=== PATIENT | female | born 1975 | race Caucasian/White ===

== ENCOUNTER 2021-10-06 11:26 | Outpatient (REF) | payer MEDICARE, SELFPAY ==
--- NOTE | ~2021-10-06 | CT_ITS ---
EXAMINATION: CT ABDOMEN WITHOUT AND WITH CONTRAST CLINICAL INFORMATION: Liver lesions. COMPARISON: There are no previous studies available. When previous studies become available an addendum can be generated. TECHNIQUE: Contiguous axial thin section helical images of the abdomen were performed before and after the administration of 85 mL of Omnipaque 350 intravenous contrast. The data set was reformatted in the coronal and sagittal planes and reviewed on an independent workstation. This CT examination was performed using dose optimization techniques as appropriate, variously including the following: *Automated exposure control *Adjustment of mA and/or kV according to patient size (this includes techniques or standardized protocols for targeted exams where dose is matched to indication/reason for exam; i.e. extremities or head) *Use of iterative reconstruction technique DLP: 1055 mGy-cm FINDINGS: LUNG BASES: There is a 0.4 cm nodule in the extreme posterolateral costophrenic sulcus on the left (series 9, image 18). LIVER, GALLBLADDER, AND BILIARY TREE: The right lobe of the liver measures 15.1 cm which is within normal limits. The liver contour is smooth. There is no convincing suspicious focal liver lesion. Direct comparison with previous studies is necessary. An addendum will be generated when previous studies become available. Liver is no opaque gallstone. There is no biliary dilation. PANCREAS: No abnormality demonstrated SPLEEN: Within normal limits ADRENAL GLANDS AND KIDNEYS: The adrenal glands are within normal limits. There is a cyst in the left kidney. The nephrograms are symmetric. There is no dilation of the urinary collecting system. BOWEL LOOPS: There is no bowel wall thickening. The stomach is not distended. There is no small bowel dilation. LYMPH NODES: There are no measurably enlarged lymph nodes. VASCULAR: There is no abdominal aortic aneurysm. The portal vein enhances. BONES: No suspicious focal lesion CT/CT abdomen wo/w con IMPRESSION: Direct comparison with previous studies necessary. An addendum can be generated when previous become available. No suspicious focal liver lesion appreciated. 0.4 cm nodule extreme posterior costophrenic sulcus left lower lung. According to the UPDATED 2017 Fleischner Society recommendations, the advised follow-up imaging for solid nodules < 6 mm is: LOW RISK PATIENT: No routine follow-up. HIGH RISK PATIENT: Optional CT at 12 months.
[2021-10-06] MEDS: iohexoL 350 MG/ML 100 ML INFUS..BTL 85 ML IV (11:45)
== END 2021-10-06 11:27 | disposition home or self-care (01) ==
LOC: HO.CT 11:26
PROVIDERS: Visit Provider Nurse Practitioner
DX: K76.9 Liver disease, unspecified (principal)
CPT/HCPCS: 74170; Q9967